=== PATIENT | male | born 1970 | race Caucasian/White ===

== ENCOUNTER 2018-06-30 22:49 | Inpatient (IN) | payer MEDICAID, OTHER | END 2018-07-07 15:15 | disposition home or self-care (01) | LOC: ER 22:49 → TELE 07-01 05:47 → ICU WEST 07-01 07:45 | PROC: 5A1955Z Respiratory Ventilation, Greater than 96 Consecutive Hours (ICD-10-PCS; principal; ~2018-06-30) | PROC: 0BH17EZ Insertion of Endotracheal Airway into Trachea, Via Natural or Artificial Opening (ICD-10-PCS; ~2018-06-30) | DX: T50.901A Poisoning by unspecified drugs, medicaments and biological substances, accidental (unintentional), initial encounter (principal); J96.00 Acute respiratory failure, unspecified whether with hypoxia or hypercapnia; G92 Toxic encephalopathy; A41.9 Sepsis, unspecified organism; F10.231 Alcohol dependence with withdrawal delirium; F23 Brief psychotic disorder; T14.91XA Suicide attempt, initial encounter; J98.11 Atelectasis; F10.129 Alcohol abuse with intoxication, unspecified; F32.9 Major depressive disorder, single episode, unspecified; I10 Essential (primary) hypertension ==